=== PATIENT | female | born 1950 | race Asian ===

== ENCOUNTER 2018-02-15 07:51 | Outpatient (CLI) | payer BC ==
[2018-02-15 10:02] LABS: BASOPHILS % (AUTO) 2.2 % (0.0-2.0); EOSINOPHILS % (AUTO) 2.9 % (0.0-3.0); HEMATOCRIT 42.8 % (37.0-47.0); HEMOGLOBIN 12.8 G/DL (12.0-16.0); LYMPHOCYTES % (AUTO) 40.2 % (20.0-45.0); MEAN CORPUSCULAR VOLUME 69 FL (80-99); MONOCYTES % (AUTO) 6.2 % (1.0-10.0); NEUTROPHILS % (AUTO) 48.6 % (45.0-75.0); PLATELET COUNT 289 K/UL (150-450); RED BLOOD COUNT 6.23 M/UL (4.20-5.40); RED CELL DISTRIBUTION WIDTH 11.7 % (11.6-14.8); WHITE BLOOD COUNT 7.4 K/UL (4.8-10.8)
[2018-02-15 11:01] LABS: ALANINE AMINOTRANSFERASE 26 U/L (12-78); ALKALINE PHOSPHATASE 68 U/L (46-116); ANION GAP 9 mmol/L (5-15); ASPARTATE AMINO TRANSFERASE 22 U/L (15-37); BILIRUBIN,TOTAL 0.5 MG/DL (0.2-1.0); BLOOD UREA NITROGEN 11 mg/dL (7-18); CALCIUM 9.1 MG/DL (8.5-10.1); CARBON DIOXIDE 29 MMOL/L (21-32); CHLORIDE 102 MMOL/L (98-107); CHOLESTEROL 245 MG/DL (< 200); CREATININE 0.7 MG/DL (0.55-1.30); HDL CHOLESTEROL 50 MG/DL (40-60); POTASSIUM 3.9 MMOL/L (3.5-5.1); SODIUM 139 MMOL/L (136-145); TRIGLYCERIDES 181 MG/DL (30-150)
== END 2018-02-15 09:51 | disposition home or self-care (01) ==
LOC: LAB 07:51
DX: Z00.00 Encounter for general adult medical examination without abnormal findings (principal); I10 Essential (primary) hypertension
CPT/HCPCS: 36415; 80053; 80061; 84443; 85025

== ENCOUNTER 2019-01-09 07:33 | Day surgery (SDC) | payer BC, SELFPAY ==
[2019-01-02 07:56] LABS: APPEARANCE,URINE CLEAR; BILIRUBIN, URINE NEGATIVE (NEGATIVE); COLOR,URINE PALE YELLOW; GLUCOSE, URINE (UA) NEGATIVE (NEGATIVE); KETONES,URINE NEGATIVE (NEGATIVE); LEUKOCYTE ESTERASE ,URINE NEGATIVE (NEGATIVE); NITRITE,URINE NEGATIVE (NEGATIVE); PH,URINE 6 (4.5-8.0); PROTEIN,URINE NEGATIVE (NEGATIVE); UROBILINOGEN,URINE NORMAL MG/DL (0.0-1.0)
[2019-01-02 08:02] LABS: BASOPHILS % (AUTO) 2.2 % (0.0-2.0); EOSINOPHILS % (AUTO) 3.6 % (0.0-3.0); HEMATOCRIT 44.7 % (37.0-47.0); HEMOGLOBIN 13.2 G/DL (12.0-16.0); LYMPHOCYTES % (AUTO) 36.4 % (20.0-45.0); MEAN CORPUSCULAR VOLUME 71 FL (80-99); MONOCYTES % (AUTO) 4.8 % (1.0-10.0); NEUTROPHILS % (AUTO) 52.9 % (45.0-75.0); PLATELET COUNT 267 K/UL (150-450); RED BLOOD COUNT 6.33 M/UL (4.20-5.40); RED CELL DISTRIBUTION WIDTH 12.7 % (11.6-14.8); WHITE BLOOD COUNT 6.2 K/UL (4.8-10.8)
[2019-01-02 08:10] LABS: ALANINE AMINOTRANSFERASE 25 U/L (12-78); ALBUMIN 4.3 G/DL (3.4-5.0); ALKALINE PHOSPHATASE 68 U/L (46-116); ANION GAP 11 mmol/L (5-15); ASPARTATE AMINO TRANSFERASE 25 U/L (15-37); BILIRUBIN,TOTAL 0.6 MG/DL (0.2-1.0); BLOOD UREA NITROGEN 13 mg/dL (7-18); CALCIUM 9.7 MG/DL (8.5-10.1); CARBON DIOXIDE 28 MMOL/L (21-32); CHLORIDE 105 MMOL/L (98-107); CREATININE 0.9 MG/DL (0.55-1.30); POTASSIUM 3.7 MMOL/L (3.5-5.1); SODIUM 144 MMOL/L (136-145)
[2019-01-02 08:33] LABS: CHOLESTEROL 205 MG/DL (< 200); HDL CHOLESTEROL 62 MG/DL (40-60); TRIGLYCERIDES 91 MG/DL (30-150)
[~2019-01-09] VITALS: Ht 149.9 cm; Wt 52.6 kg
[~2019-01-09 07:33] MED LIST: AMLODIPINE BESYL5 MG ORAL
[2019-01-09] MEDS ORDERED: Vigamox Opth Soln 3ml ONE (08:19)
[2019-01-09] MEDS ORDERED: Flurbiprofen 0.03% Opth Sol 2.5ml ONE (08:19)
[2019-01-09] MEDS: Flurbiprofen 0.03% Opth Sol 2.5ml LEFT EYE SCH ×2 (08:23→08:34)
[2019-01-09] MEDS: Vigamox Opth Soln 3ml LEFT EYE SCH ×2 (08:23→08:34)
[2019-01-09] MEDS: Cyclopentolate 1% Opth Sol 2ml LEFT EYE SCH ×3 (08:23→08:49)
[2019-01-09] MEDS: Tropicamide 1% Opth 15ml Soln LEFT EYE SCH ×3 (08:23→08:49)
[2019-01-09] MEDS: Phenylephrine 10% Opth Soln 5ml LEFT EYE SCH ×3 (08:23→08:49)
[2019-01-09 08:27] VITALS: BP 142/75
--- NOTE | 2019-01-09 08:45 | Anethesia Preoperative Eval ---
Anesthesia Pre-op PMH/ROS General Date of Evaluation: Jan 09, 2019 Anesthesiologist: Uli ASA Score: ASA 2 Mallampati Score Class I : Soft palate, uvula, fauces, pillars visible Class II: Soft palate, uvula, fauces visible Class III: Soft palate, base of uvula visible Class IV: Only hard plate visible Mallampati Classification: Class I Surgeon: Ermias Diagnosis: Left cataract Surgical Procedure: Left cataract extraction with IOL Anesthesia History: none Family History: no anesthesia problems Allergies: Coded Allergies: DOXYCYCLINE (Verified Allergy, Severe, 01/09/19) THROAT CLOSES UP AMOXICILLIN (Verified Allergy, Intermediate, 01/09/19) SKIN RASH Medications: see eMAR Patient NPO?: Yes NPO Date: Jan 08, 2019 NPO Time: 22:00 Past Medical History Cardiovascular: Reports: HTN, other - HLD; Denies: CAD, [place], valve dz, arrhythmia Pulmonary: Denies: asthma, COPD, LUIS, other Gastrointestinal/Genitourinary: Denies: GERD, CRI, ESRD, other Neurologic/Psychiatric: Denies: dementia, CVA, depression/anxiety, TIA, other Endocrine: Reports: DM; Denies: hypothyroidism, steroids, other HEENT: Denies: cataract (L), cataract (R), glaucoma, [place] (L), [place] (R), other Hematology/Immune: Denies: anemia, DVT, bleeding disorder, other Musculoskeletal/Integumentary: Denies: OA, RA, DJD, DDD, edema, other PSxH Narrative: c/s x2 Anesthesia Pre-op Phys. Exam Physician Exam Last Vital Signs Date Time Temp Pulse Resp B/P (MAP) Pulse Ox O2 Delivery O2 Flow Rate FiO2 01/09/19 08:29 Room Air 01/09/19 08:27 97.5 71 20 142/75 98 Constitutional: NAD Cardiovascular: RRR Respiratory: CTA Airway Exam Mallampati Score: Class I MO: full ROM: full Teeth: other - dental implants Anesthesia Pre-op A/P Labs see chart Studies Pre-op Studies: EKG - sr Risk Assessment & Plan Assessment: ASA II Plan: MAC Status Change Before Surgery: No Pre-Antibiotics Drug: N/A Reta Barrett MD Jan 09, 2019 08:45
[2019-01-09] MEDS ORDERED: EPINEPHrine 1mg/1ml Amp ONE (09:23)
[2019-01-09] MEDS ORDERED: Kenalog-40 1ml Vial ONE (09:23)
[2019-01-09] MEDS ORDERED: Povidone-Iodine 5% opth solution ONE (09:24)
[2019-01-09] MEDS ORDERED: Lidocaine 1% MPF 10mg/ml 5ml ONE ×2 (09:24→09:47)
[2019-01-09] MEDS ORDERED: Carbachol 0.01% Op Soln 1.5ml vial ONE (09:24)
[2019-01-09] MEDS ORDERED: BSS 15ml BTL ONE (09:24)
[2019-01-09] MEDS ORDERED: Tobradex Opth Oint 3.5gm ONE (09:24)
[2019-01-09] MEDS ORDERED: BSS 500ml btl ONE ×2 (09:24→10:53)
[2019-01-09] MEDS ORDERED: Tetracaine 0.5% Opth 4ml Soln ONE (09:24)
[2019-01-09] MEDS ORDERED: Proparacaine 0.5% Opth Soln 15ml ONE (09:25)
[2019-01-09] MEDS ORDERED: Healon Duet Dual Pack ONE ×2 (09:25→10:42)
[2019-01-09] MEDS ORDERED: Triamcinolone 40mg/ml PF Vial ONE (09:25)
[2019-01-09] MEDS ORDERED: Midazolam 2mg/2ml Inj ONE (09:47)
[2019-01-09] MEDS ORDERED: fentaNYL 100 mcg/2 mL IV ONE (09:47)
[2019-01-09] MEDS ORDERED: Propofol 200mg/20ml IV ONE (09:47)
[2019-01-09] MEDS ORDERED: Akten 3.5% 1ml Btl ONE (09:52)
[2019-01-09] MEDS ORDERED: LR 1000ml ONE (10:00)
[2019-01-09] MEDS ORDERED: NS Irrig 1000ml ONE (10:00)
[2019-01-09] MEDS ORDERED: Sterile Water Irrig 1000ml IRRIG ONE (10:00)
--- NOTE | 2019-01-09 10:16 | Pre-Procedure Note/Attestation ---
Pre-Procedure Note/Attestation Complete Prior to Procedure Planned Procedure: left Procedure Narrative: ctrct extractioni with IOL left eye Indications for Procedure Pre-Operative Diagnosis: catarct lleft eye Attestation I attest that I discussed the nature of the procedure; its benefits; risks and complications; and alternatives (and the risks and benefits of such alternatives ), prior to the procedure, with the patient (or the patient's legal billing representative). I attest that, if there was a reasonable possibility of needing a blood transfusion, the patient (or the patient's legal billing representative) was given the [facility] standardized written summary, pursuant to the Eulogio Skillman Blood Safety Act ([place] Health and Safety Code # 1645, as amended). I attest that I re-evaluated the patient just prior to the surgery and that there has been no change in the patient's H&P, except as documented below: Baudilio Monson MD Jan 09, 2019 10:16
[2019-01-09] MEDS ORDERED: LR 1000ml 1,000 ML IVLG SCH (10:29)
[2019-01-09] MEDS ORDERED: Metoclopramide 10mg/2ml Inj IVP PRN (10:30)
[2019-01-09] MEDS ORDERED: DiphenhydrAMINE 50mg/ml Inj IVP PRN (10:30)
[2019-01-09 11:09] VITALS: BP 152/86
--- NOTE | 2019-01-09 11:12 | Immediate Post-Op Evaluation ---
Immediate Post-Op Evalulation Immediate Post-Op Evalulation Procedure: Left cataract extraction with IOL Date of Evaluation: Jan 09, 2019 Time of Evaluation: 11:14 IV Fluids: 400 Blood Products: 0 Estimated Blood Loss: 0 Urinary Output: 0 Blood Pressure Systolic: 152 Blood Pressure Diastolic: 86 Pulse Rate: 65 Respiratory Rate: 16 O2 Sat by Pulse Oximetry: 100 Temperature (Fahrenheit): 97.8 Pain Score (1-10): 0 Nausea: No Vomiting: No Complications 0 Patient Status: awake, reacts, patent, none Hydration Status: adequate Drug: N/A Reta Barrett MD Jan 09, 2019 11:12
--- NOTE | 2019-01-09 11:13 | 48 Hour Post Anesthesia Eval ---
Post Anesthesia Evaluation Procedure: Left cataract extraction with IOL Date of Evaluation: Jan 09, 2019 Airway: patent Nausea: No Vomiting: No Pain Intensity: 0 Hydration Status: adequate Cardiopulmonary Status: at baseline Mental Status/LOC: patient returned to baseline Post-Anesthesia Complications: 0 Follow-up care needed: ready to discharge Reta Barrett MD Jan 09, 2019 11:13
[2019-01-09 11:14] VITALS: BP 153/80
--- NOTE | 2019-01-09 11:15 | Brief Operative Note ---
Immediate Post Operative Note Operative Note Pre-op Diagnosis: catarct lleft eye Procedure: cataract extraction with IOL left eye Post-op Diagnosis: same as pre-op Findings: consistent w/pre-op dx studies Surgeon: Baudilio eden Flower Cheniller: none Anesthesia: local, MAC Specimen: none Complications: none Condition: stable Fluids: yes Estimated Blood Loss: none Drains: none Implant(s) used?: Yes - multifocal tecnis ZMBoo +19.5 Baudilio Eden MD Jan 09, 2019 11:15
[2019-01-09 11:19] VITALS: BP 142/75
--- NOTE | 2019-01-09 11:20 | Opthalmology H&P ---
Ophthalmology H&P H&P Chief Complaint: decreased vision in both eyes HPI Vision Affects Ability to: read, watch TV, drive, focus/use eyes together, manage personal affairs HPI Narrative Blurred vision interfering with daily activities Exam Visual Acuity: corrected OD 20/50 OS 20/400 Tension: normal OU Eye Exam: normal OU: external exam, palpebral fissure-width, marginal reflex distance, levator function, corneas, anterior chambers - 2+ NS 1+ AC right eye 2 + PSC 2+ NS 1+ AC left eye, fundus exam - 2; findings: lens Assessment/Plan Treatment Plan: cataract extraction w/ lens implant Goals of Treatment: improvement of vision Attestation Attestation The risks and benefits of the surgery as well as alternative procedures were explained to the patient in detail. Baudilio Monson MD Jan 09, 2019 11:20
[2019-01-09] MEDS ORDERED: acetaZOLAMIDE 500mg Sequel ORAL ONE (11:21)
[2019-01-09] MEDS ORDERED: acetaZOLAMIDE 500mg Sequel ORAL SCH (11:28)
[2019-01-09 11:29] VITALS: BP 138/80
[2019-01-09 11:35] VITALS: BP 154/89
--- NOTE | 2019-01-10 03:00 | Operative Note - Dictated ---
DATE OF OPERATION: 01/09/2019 PREOPERATIVE DIAGNOSIS: Visually significant combined cataract, left eye. POSTOPERATIVE DIAGNOSIS: Visually significant combined cataract, left eye. PROCEDURE PERFORMED: 1. Cataract extraction with intraocular lens implant, left eye. 2. Limbal relaxing incision, left eye. ANESTHESIA: Topical with intracameral MAC. COMPLICATIONS: None. PROCEDURE IN DETAIL: After explaining the risks and benefits of the procedure to the patient including the possibility of decreased or loss of vision from infection, endophthalmitis, retinal detachment, macular edema, glaucoma, corneal damage, and other causes, an informed consent was obtained. The patient was brought into the operating room and the left eye was prepped and draped in usual sterile fashion. A speculum was placed in the left eye. A side-port blade was used to make a paracentesis and about 0.5 00:50 mL of lidocaine 1% without preservative was injected into the anterior chamber. Using a felipe blade, two limbal relaxing incisions were drawn and 30-degree and 235-degree meridians, which were partial-thickness and about 30 degrees in length. It was difficult to visualize the anterior capsule, so a little bit of of Vision Blue dye was injected into the anterior chamber and was irrigated out. Some viscoelastic was injected into the anterior chamber. A 2.7 mm keratome was used to make a temporal limbal incision, 2.7 mm length. Some more viscoelastic was injected into the anterior chamber. A cystotome and Utrata forceps were used to do a continuous curvilinear capsulorrhexis and hydrodissection was done using BSS on a cannula. Phacoemulsification was done using a phaco flip technique to remove the nucleus and automated irrigation and aspiration was done to remove all the remaining cortex. At this point, it was noted that the posterior capsule was intact. Some viscoelastic was injected to inflate the capsular bag. Using Scriptick Delivery System, this lens was injected into the bag, Mills lens thickness, multifocal power 19.5 diopter, Sinskey hook was used to rotate the lens and made sure that the lens was inside of the bag and then automated irrigation and aspiration was done to remove all the viscoelastic. Some Miostat was injected into the anterior chamber and then the wound was hydrated using BSS on a cannula. At this point, the wound was checked for any leakage, which there was none, which was very quiet. It was noted that the lens was well centered and the pupil was round. The speculum was removed from the left eye. Drop of applied to the left eye. The left eye was closed with some eye pad and eye franklin were also placed and taped to the left eye. The patient tolerated the procedure well and there were no complications. She was transferred to the recovery room and will be followed up in the office tomorrow morning. Baudilio Monson M.D. DR: Dalia JOB#: [id number] CC:
== END 2019-01-09 12:30 | disposition home or self-care (01) ==
LOC: SUR 07:33
DX: H25.12 Age-related nuclear cataract, left eye (principal); I10 Essential (primary) hypertension; E78.5 Hyperlipidemia, unspecified; E11.9 Type 2 diabetes mellitus without complications; Z88.0 Allergy status to penicillin; Z80.3 Family history of malignant neoplasm of breast; Z82.3 Family history of stroke; Z82.49 Family history of ischemic heart disease and other diseases of the circulatory system
CPT/HCPCS: 36415; 66984; 66999; 80053; 80061; 81001; 82962; 83036; 85025; J2250; J2704; J3010; J3370; 94003; 94150; J3300

== ENCOUNTER 2019-01-25 10:07 | Day surgery (SDC) | payer BC, SELFPAY ==
[2019-01-25] VITALS (8 sets, daily range): BP systolic 132–150; BP diastolic 51–88
[~2019-01-25] VITALS: Ht 149.9 cm; Wt 52.2 kg
[2019-01-25] MEDS ORDERED: BSS 500ml btl ONE (10:14)
[2019-01-25] MEDS ORDERED: Tetracaine 0.5% Opth 4ml Soln ONE (10:14)
[2019-01-25] MEDS ORDERED: BSS 15ml BTL ONE ×2 (10:14→11:59)
[2019-01-25] MEDS ORDERED: Kenalog-40 1ml Vial ONE (10:14)
[2019-01-25] MEDS ORDERED: Triamcinolone 40mg/ml PF Vial ONE (10:14)
[2019-01-25] MEDS ORDERED: EPINEPHrine 1mg/1ml Amp ONE (10:14)
[2019-01-25] MEDS ORDERED: Sodium Hyaluronate 10 mg/ml 0.85ml ONE (10:15)
[2019-01-25] MEDS ORDERED: Sodium Hyaluronate 14 mg/ml 0.85ml ONE (10:15)
[2019-01-25] MEDS ORDERED: Lidocaine 1% MPF 10mg/ml 5ml ONE ×2 (10:16→11:29)
[2019-01-25] MEDS ORDERED: Carbachol 0.01% Op Soln 1.5ml vial ONE (10:16)
[2019-01-25] MEDS ORDERED: Polysporin Opth Oint 3.5gm ONE (10:18)
[2019-01-25] MEDS ORDERED: Proparacaine 0.5% Opth Soln 15ml ONE (10:23)
[2019-01-25] MEDS ORDERED: Akten 3.5% 1ml Btl ONE (10:23)
[2019-01-25] MEDS: Cyclopentolate 1% Opth Sol 2ml RIGHT EYE SCH ×2 (10:39→11:08)
[2019-01-25] MEDS: Tropicamide 1% Opth 15ml Soln RIGHT EYE SCH ×2 (10:39→11:08)
[2019-01-25] MEDS: Phenylephrine 10% Opth Soln 5ml RIGHT EYE SCH ×2 (10:40→11:08)
[2019-01-25] MEDS: Vigamox Opth Soln 3ml RIGHT EYE SCH ×2 (10:40→11:09)
[2019-01-25] MEDS: Flurbiprofen 0.03% Opth Sol 2.5ml RIGHT EYE SCH ×2 (10:40→11:09)
[2019-01-25] MEDS ORDERED: Midazolam 2mg/2ml Inj ONE (11:29)
[2019-01-25] MEDS ORDERED: fentaNYL 100 mcg/2 mL IV ONE (11:29)
[2019-01-25] MEDS ORDERED: LR 1000ml ONE (11:30)
[2019-01-25] MEDS ORDERED: Sterile Water Irrig 1000ml IRRIG ONE (11:30)
[2019-01-25] MEDS ORDERED: NS Irrig 1000ml ONE (11:30)
[2019-01-25] MEDS ORDERED: LR 1000ml 1,000 ML IVLG SCH (11:38)
--- NOTE | 2019-01-25 11:38 | Anethesia Preoperative Eval ---
Anesthesia Pre-op PMH/ROS General Date of Evaluation: Jan 25, 2019 Anesthesiologist: Uli ASA Score: ASA 2 Mallampati Score Class I : Soft palate, uvula, fauces, pillars visible Class II: Soft palate, uvula, fauces visible Class III: Soft palate, base of uvula visible Class IV: Only hard plate visible Mallampati Classification: Class I Surgeon: Ermias Diagnosis: Right cataract Surgical Procedure: Right cataract extraction with IOL Anesthesia History: none Family History: no anesthesia problems Allergies: Coded Allergies: DOXYCYCLINE (Verified Allergy, Severe, 01/09/19) THROAT CLOSES UP AMOXICILLIN (Verified Allergy, Intermediate, 01/09/19) SKIN RASH Medications: see eMAR Patient NPO?: Yes NPO Date: Jan 24, 2019 Past Medical History Cardiovascular: Reports: HTN, other - HLD; Denies: CAD, MD, valve dz, arrhythmia Pulmonary: Denies: asthma, COPD, LUIS, other Gastrointestinal/Genitourinary: Denies: GERD, CRI, ESRD, other Neurologic/Psychiatric: Denies: dementia, CVA, depression/anxiety, TIA, other Endocrine: Reports: DM; Denies: hypothyroidism, steroids, other HEENT: Denies: cataract (L), cataract (R), glaucoma, [place] (L), [place] (R), other Hematology/Immune: Denies: anemia, DVT, bleeding disorder, other Musculoskeletal/Integumentary: Denies: OA, RA, DJD, DDD, edema, other PSxH Narrative: left cataract, c/s x2 Anesthesia Pre-op Phys. Exam Physician Exam Last Vital Signs Date Time Temp Pulse Resp B/P (MAP) Pulse Ox O2 Delivery O2 Flow Rate FiO2 01/25/19 11:00 97.9 66 20 143/85 98 Room Air Constitutional: NAD Cardiovascular: RRR Respiratory: CTA Airway Exam Mallampati Score: Class I MO: full ROM: full Teeth: intact Anesthesia Pre-op A/P Labs see chart Studies Pre-op Studies: EKG - sr Risk Assessment & Plan Assessment: ASA II Plan: MAC Status Change Before Surgery: No Pre-Antibiotics Drug: N/A Reta Barrett MD Jan 25, 2019 11:38
[2019-01-25] MEDS ORDERED: DiphenhydrAMINE 50mg/ml Inj IVP PRN (11:45)
--- NOTE | 2019-01-25 11:55 | Pre-Procedure Note/Attestation ---
Pre-Procedure Note/Attestation Complete Prior to Procedure Planned Procedure: right Procedure Narrative: cataract extraction with IOL right eye with LRI Indications for Procedure Pre-Operative Diagnosis: Cataract right eye with astigmatism Attestation I attest that I discussed the nature of the procedure; its benefits; risks and complications; and alternatives (and the risks and benefits of such alternatives ), prior to the procedure, with the patient (or the patient's legal student services representative). I attest that, if there was a reasonable possibility of needing a blood transfusion, the patient (or the patient's legal student services representative) was given the [facility] standardized written summary, pursuant to the Eulogio [place] Blood Safety Act ([place] Health and Safety Code # 1645, as amended). I attest that I re-evaluated the patient just prior to the surgery and that there has been no change in the patient's H&P, except as documented below: Baudilio Monson MD Jan 25, 2019 11:55
[2019-01-25] MEDS ORDERED: Povidone-Iodine 5% opth solution ONE (11:59)
--- NOTE | 2019-01-25 12:04 | Opthalmology H&P ---
Ophthalmology H&P H&P Chief Complaint: decreased vision in right eye HPI Vision Affects Ability to: read, watch TV, drive, focus/use eyes together, manage personal affairs Past Ocular History: allergies to medications - amoxicilline and doxycycline HPI Narrative blurred vision right eye interfering with daily activities Exam Visual Acuity: best corrected 20/50 right eye and 20/20 left eye Tension: normal 16 both eyes Eye Exam: normal OU: external exam, palpebral fissure-width, marginal reflex distance, levator function, corneas, anterior chambers, fundus exam; findings: lens - 3 + NS cataract right eye and PCIOL left eye Assessment/Plan Treatment Plan: cataract extraction w/ lens implant Goals of Treatment: improvement of vision, reduce glasses/contacts dependence, enhance quality of life Attestation Attestation The risks and benefits of the surgery as well as alternative procedures were explained to the patient in detail. Baudilio Monson MD Jan 25, 2019 12:04
--- NOTE | 2019-01-25 12:50 | Brief Operative Note ---
Immediate Post Operative Note Operative Note Pre-op Diagnosis: Cataract right eye with astigmatism Procedure: cataract extraction with LRI right eye Post-op Diagnosis: same as pre-op Findings: consistent w/pre-op dx studies Surgeon: Baudilio eden Liquor Gallery Operator: latisha Anesthesia: MAC Specimen: none Complications: none Condition: stable Fluids: As per anesthesiologist Estimated Blood Loss: none Drains: none Packing: none Implant(s) used?: Yes - [id number] +19.50 Baudilio Eden MD Jan 25, 2019 12:50
[2019-01-25] MEDS ORDERED: Pilocarpine 1% Opth 15ml Soln BOTH EYES SCH (13:00)
[2019-01-25] MEDS ORDERED: acetaZOLAMIDE 500mg Sequel ORAL SCH (13:00)
--- NOTE | 2019-01-26 00:15 | Operative Note - Dictated ---
DATE OF OPERATION: 01/25/2019 PREOPERATIVE DIAGNOSIS: Visually significant nuclear sclerotic cataract, right eye. POSTOPERATIVE DIAGNOSIS: Visually significant nuclear sclerotic cataract, right eye. PROCEDURE PERFORMED: Cataract extraction with intraocular lens implant, right eye and limbal relaxing incision, right eye. ANESTHESIA: Topical with intracameral with MAC. COMPLICATIONS: None. PROCEDURE IN DETAIL: After explaining the risks and benefits of the procedure to the patient including the possibility of decrease or even loss of vision from infection, endophthalmitis, retinal detachment, macular edema, glaucoma, corneal damage, and other causes, an informed consent was obtained. The patient was brought into the operating room and a few drops of Akten was placed in the right eye. The right eye was prepped and draped in the usual sterile fashion. A speculum was placed in the right eye. A felipe blade was used to create a limbal relaxing incision centered at 0-degree meridian, which was about 70-degree in length. A side-port blade was used to make a paracentesis and about 0.1 mL of lidocaine 1% without preservative was injected into the anterior chamber and then some viscoelastic was injected into the anterior chamber. A 2.8 mm keratome was used to make a temporal limbal incision, 2.8 mm in length. Some more viscoelastic was injected into the anterior chamber. The cystotome and Utrata forceps were used to do a continuous curvilinear capsulorrhexis and hydrodissection was done using BSS on a cannula. Phacoemulsification was done using a phaco flip technique to remove the nucleus and automated irrigation and aspiration was done from all the remaining cortex. At this point, it was noted that the posterior capsule was intact. Some viscoelastic was injected to inflate the capsular bag. Using Mills Delivery System, this lens was injected into the bag, Mills lens multifocal thickness [id number], power 19.5 diopter, Sinskey hook was used to rotate the lens and make sure that the lens was inside of the bag and then automated irrigation aspiration was done to remove all the viscoelastic. Some Miostat was injected into the anterior chamber and then the wound was hydrated using BSS on a cannula. At this point, the wound was checked for any leakage, which there was none, it was watertight, so no sutures were required. It was noted that the lens was well centered in the bag and the pupil was round. The speculum was removed from the right eye. A drop of pilocarpine and Vigamox were placed in the right eye. The right eye was closed and some TobraDex ointment was placed over the right eye and an eye patch and eye shield were also placed and taped over the right eye. The patient tolerated the procedure well and there were no complications. She was transferred to recovery room and will be followed up in the office tomorrow morning. Baudilio Monson M.D. DR: HENRY JOB#: [id number] CC:
--- NOTE | 2019-01-29 07:04 | Immediate Post-Op Evaluation ---
Immediate Post-Op Evalulation Immediate Post-Op Evalulation Procedure: Right cataract extraction with IOL Date of Evaluation: Jan 29, 2019 Pain Score (1-10): 0 Nausea: No Vomiting: No Complications 0 Patient Status: awake, reacts, patent, none Hydration Status: adequate Drug: N/A Reta Barrett MD Jan 29, 2019 07:04
--- NOTE | 2019-01-29 07:04 | 48 Hour Post Anesthesia Eval ---
Post Anesthesia Evaluation Procedure: Right cataract extraction with IOL Date of Evaluation: Jan 29, 2019 Airway: patent Nausea: No Vomiting: No Hydration Status: adequate Cardiopulmonary Status: at baseline Mental Status/LOC: patient returned to baseline Post-Anesthesia Complications: 0 Follow-up care needed: ready to discharge Reta Barrett MD Jan 29, 2019 07:04
== END 2019-01-25 14:00 | disposition home or self-care (01) ==
LOC: SUR 10:07
DX: H25.11 Age-related nuclear cataract, right eye (principal); Z88.0 Allergy status to penicillin; I10 Essential (primary) hypertension; E78.5 Hyperlipidemia, unspecified; E11.9 Type 2 diabetes mellitus without complications
CPT/HCPCS: 66984; 66999; 82962; J0171; J2250; J3010; J3370; 94003; 94150; J3300

== ENCOUNTER → 2020-08-18 | Outpatient (CLI) | payer OTHER ==
[2020-08-18 09:37] LABS: BASOPHILS % (AUTO) 2.2 % (0.0-2.0); EOSINOPHILS % (AUTO) 3.4 % (0.0-3.0); HEMATOCRIT 41.9 % (37.0-47.0); LYMPHOCYTES % (AUTO) 42.4 % (20.0-45.0); MEAN CORPUSCULAR VOLUME 70 FL (80-99); MONOCYTES % (AUTO) 5.2 % (1.0-10.0); NEUTROPHILS % (AUTO) 46.8 % (45.0-75.0); PLATELET COUNT 298 K/UL (150-450); RED BLOOD COUNT 6.01 M/UL (4.20-5.40); RED CELL DISTRIBUTION WIDTH 13.9 % (11.6-14.8)
[2020-08-18 09:43] LABS: APPEARANCE,URINE CLEAR; BILIRUBIN, URINE NEGATIVE (NEGATIVE); COLOR,URINE PALE YELLOW; GLUCOSE, URINE (UA) NEGATIVE (NEGATIVE); KETONES,URINE NEGATIVE (NEGATIVE); LEUKOCYTE ESTERASE ,URINE 1+ (NEGATIVE); NITRITE,URINE NEGATIVE (NEGATIVE); PH,URINE 5 (4.5-8.0); PROTEIN,URINE NEGATIVE (NEGATIVE); UROBILINOGEN,URINE NORMAL MG/DL (0.0-1.0)
[2020-08-18 09:48] LABS: ANION GAP 8 mmol/L (5-15); BLOOD UREA NITROGEN 15 mg/dL (7-18); CALCIUM 9.8 MG/DL (8.5-10.1); CARBON DIOXIDE 28 MMOL/L (21-32); CHLORIDE 102 MMOL/L (98-107); CREATININE 0.8 MG/DL (0.55-1.30); POTASSIUM 4.3 MMOL/L (3.5-5.1); SODIUM 138 MMOL/L (136-145)
== END | disposition home or self-care (01) ==
LOC: LAB 08:21
DX: Z01.818 Encounter for other preprocedural examination (principal)
CPT/HCPCS: 36415; 80048; 81001; 83036; 85025; 85610; 85730; 93005